=== PATIENT | male | born 2000 | race African-American/Black ===

== ENCOUNTER 2025-01-26 15:40 | Emergency (ER) | payer SELFPAY ==
[2025-01-26] MEDS ORDERED: GABAPENTIN 300 MG CAP ONE (16:14)
[2025-01-26] MEDS ORDERED: HYDROCODONE/APAP 7.5/325 MG TAB ONE (16:14)
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
[2025-01-26 17:11] VITALS: TEMP 98.2; O2SAT 100
[2025-01-26 17:13] VITALS: BP 147/99
== END 2025-01-26 17:05 | disposition home or self-care (01) ==
LOC: ER 15:40
DX: M79.602 Pain in left arm (principal); Z87.828 Personal history of other (healed) physical injury and trauma; F17.290 Nicotine dependence, other tobacco product, uncomplicated
CPT/HCPCS: 99283